=== PATIENT | female | born 1960 | race Caucasian/White ===

== ENCOUNTER → 2016-10-23 | Outpatient (CLI) | payer BC ==
[~2016-10-23] MED LIST: ACETAMINOPHEN PO; ALBUTEROL17 GM INH; ANUSOL; ASPIRIN EC81 M1 PO; CLINDAMYCIN HC300 MG PO; COZAAR PO; DIOVAN HCT 80/11 TAB; IBUPROFEN600 MG PO; LIPITOR PO; LOSARTAN-HCTZ1 EAC2 PO; MOBIC PO; MONODOX100 MG; PRILOSEC; PRILOSEC20 MG PO; PROTONIX PO; ROBITUSSIN-DM120 ML PO; SARAFEM20 MG PO; SYMBICORT80 INH; ULTRACET TABLET1 TAB; ULTRAM PO; VICODIN 5/500 T1 TAB PO; ZITHROMAX PO
--- NOTE | ~2016-10-23 | US85 ---
[facility]. [facility] A Service of [facility] RADIOLOGY TEXT RESULTS PATIENT: NIGRID MAR LOCATION: SNIV : 56 UNIT #: [id number] AGE: [address]: Stefanie Capellan MD SEX: F ORDER DR: [id number] [address] [address] [id number] O MR#: [id number] Acc #: [id number] NAME: INGRID MAR : 1960 SEX: F STUDY DATE/TIME: 10/23/2016 15:39 UNIT: SNIV ROOM: STUDY DESCRIPTION: [facility] Attending Physician: Stefanie Capellan M.D. Referring Physician: Stefanie Capellan M.D. Ordering Physician: Stefanie Capellan M.D. Primary Care Physician: Stefanie Capellan M.D. MEDICAL IMAGING REPORT This report is preliminary unless electronic signature is present. EXAM Left lower extremity venous Doppler. HISTORY Left lower extremity swelling x1 week. Pain x1 week. TECHNIQUE Venous ultrasound examination of the left lower extremity was performed using grayscale, spectral Doppler and color flow Doppler imaging. FINDINGS The examination is negative. There is no evidence of left lower extremity deep venous thrombus from the groin to the lower calf. Visualized greater saphenous vein is also patent. IMPRESSION Negative examination. No evidence of left lower extremity DVT. Dictated by... Socorro Blanca M.D. THIS IS AN ELECTRONICALLY VERIFIED REPORT Socorro Blanca M.D. at 10/24/2016 10:05 AM Jessika TD: 10/23/2016 22:41 JOB #: [id number] MEDICAL IMAGING REPORT Page 1 of 1
== END | disposition home or self-care (01) ==
LOC: SNIV 15:30
DX: R60.0 Localized edema (principal)
CPT/HCPCS: 93971